=== PATIENT | female | born 1955 | race Two or more races ===

== ENCOUNTER 2016-05-03 13:02 | Emergency (ER) | payer BC ==
[2016-05-03 13:12] VITALS: BP 164/88; PULSE 76; TEMP 98.5; BMI 25.4
[2016-05-03] MEDS ORDERED: ALBUTEROL SO4 2.5/IPRATROPIUM 0.5 INH SOL 3 ML VIAL.NEB. NEB ONE (15:21)
[2016-05-03] MEDS ORDERED: ALBUTEROL SO4 0.083% IH SOL 2.5 MG/3 ML VIAL.NEB. NEB ONE ×2 (15:22→15:26)
--- NOTE | 2016-05-03 15:47 | PDOC ---
History of Present Illness - General Chief Complaint: Cold Symptoms Stated Complaint: FEVER, COLD, COUGH Time Seen by Provider: 05/03/16 15:11 History Source: Patient Exam Limitations: No Limitations - History of Present Illness Initial Comments: 05/03/16 15:44 CC cough and congesion x 1 week post vacation in [place] Timing/Duration: reports: getting worse Severity: reports: moderate Associated Symptoms: denies: facial pain Past History - Past Medical History Allergies/Adverse Reactions: Allergies Allergy/AdvReac Type Severity Reaction Status Date / Time No Known Allergies Allergy Verified 05/03/16 13:12 Home Medications: Ambulatory Orders Ibuprofen [Motrin] 600 mg PO TID #20 tablet 07/19/13 Meclizine HCl [Antivert -] 25 mg PO TID #20 tablet 07/19/13 No Home Medications 0 dose .ROUTE UTDICT 07/19/13 Oseltamivir Phosphate [Tamiflu] 75 mg PO BID #10 capsule 07/19/13 HTN: Yes Hypercholesterolemia: Yes - Psycho/Social/Smoking Cessation Hx Anxiety: No Suicidal Ideation: No Smoking History: Never smoked Have you smoked in the past 12 months: No Hx Alcohol Use: No Drug/Substance Use Hx: No Substance Use Type: None Review of Systems - Review of Systems Constitutional: Yes: Fever, Malaise HEENTM: Yes: Nose Congestion. No: Throat Pain Respiratory: Yes: Cough, Wheezing Cardiac (ROS): No: Symptoms Reported ABD/GI: No: Symptoms Reported *Physical Exam - Vital Signs Last Vital Signs Temp Pulse Resp BP Pulse Ox 98.5 F 76 20 164/88 96 05/03/16 13:08 05/03/16 13:08 05/03/16 13:08 05/03/16 13:08 05/03/16 13:08 - Physical Exam General Appearance: Yes: Appropriately Dressed. No: Apparent Distress HEENT: positive: TMs Normal, Nasal Congestion. negative: Pharynx Normal Neck: positive: Rigid Respiratory/Chest: positive: Lungs Clear, Wheezing Cardiovascular: positive: Regular Rhythm, Regular Rate. negative: Murmur ED Treatment Course - Medications Given in the ED: ED Medications Discontinued Medications Generic Name Dose Route Start Last Admin Trade Name Freq PRN Reason Stop Dose Admin Albuterol Sulfate 1 amp 05/03/16 15:22 05/03/16 15:25 Ventolin 0.083% Nebulizer Soln - NEB 05/03/16 15:23 1 amp ONCE ONE Administration Medical Decision Making - Medical Decision Making 05/03/16 15:45 feeling better post albuterol; will tx with albuterol and doxy *DC/Admit/Observation/Transfer Diagnosis at time of Disposition: Bronchitis - Discharge Dispostion Disposition: HOME Condition at time of disposition: Stable Admit: No - Patient Instructions Additional Instructions: see local MD next week
== END 2016-05-03 15:51 | disposition home or self-care (01) ==
LOC: JERFT 13:02
PROC: 3E0F7GC Introduction of Other Therapeutic Substance into Respiratory Tract, Via Natural or Artificial Opening (ICD-10-PCS; principal; 2016-05-03)
DX: J40 Bronchitis, not specified as acute or chronic (principal); I10 Essential (primary) hypertension
CPT/HCPCS: 99281-25

== ENCOUNTER 2017-01-10 15:54 | Emergency (ER) | payer BC ==
[2017-01-10 15:58] VITALS: BP 157/80; PULSE 82; TEMP 98.1; BMI 24.9
[2017-01-10] MEDS ORDERED: IBUPROFEN 600 MG TABLET (FP) PO ONE (17:03)
--- NOTE | 2017-01-10 17:03 | PDOC ---
History of Present Illness - General Chief Complaint: Toothache Stated Complaint: PAIN/ FACE, NECK Time Seen by Provider: 01/10/17 16:35 History Source: Patient Exam Limitations: No Limitations - History of Present Illness Initial Comments: 01/10/17 17:22 My chief complaint: Left-sided dental pain History of present illness: Patient is a 61-year-old female with a history of hypertension and hyperlipidemia here today complaining of left sided dental pain for the last 3 days. Patient reports that she's taken ibuprofen and acetaminophen as help relieve the pain. Patient denies any fever. Patient has multiple fillings on her molars has not seen a dentist for many years. Patient does not have dental insurance. Patient reports the pain currently is a 6 out of 10 aching in nature. Patient does not have any facial swelling. Timing/Duration: getting worse Severity: moderate (LEFT SIDED TOOTHACHE) Associated Symptoms: reports: denies symptoms Past History - Past Medical History Allergies/Adverse Reactions: Allergies Allergy/AdvReac Type Severity Reaction Status Date / Time No Known Allergies Allergy Verified 01/10/17 15:58 Home Medications: Ambulatory Orders Penicillin V Potassium [Pen Vee K -] 500 mg PO QID #28 tablet MDD 4 TABS HTN: Yes Hypercholesterolemia: Yes - Suicide/Smoking/Psychosocial Hx Smoking History: Never smoked Have you smoked in the past 12 months: No Hx Alcohol Use: No Drug/Substance Use Hx: No Substance Use Type: None Review of Systems - Review of Systems Able to Perform ROS?: Yes Constitutional: No: Symptoms Reported HEENTM: Yes: Dental Problems (LEFT UPPER AND LOWER TOOTH PAIN ) Respiratory: No: Symptoms reported Cardiac (ROS): No: Symptoms Reported ABD/GI: No: Symptoms Reported : No: Symptoms Reported Musculoskeletal: No: Symptoms Reported Integumentary: No: Symptoms Reported Neurological: No: Symptoms reported *Physical Exam - Vital Signs Last Vital Signs Temp Pulse Resp BP Pulse Ox 98.1 F 82 20 157/80 98 01/10/17 15:56 01/10/17 15:56 01/10/17 15:56 01/10/17 15:56 01/10/17 15:56 - Physical Exam General Appearance: Yes: Appropriately Dressed HEENT: positive: TMs Normal, Other (TOOTH # 18, 19 TENDERNESS TO TAPING, GUM TENDERNESS/EDEMA, LEFT LOWER MOLAR ). negative: Pharyngeal Erythema, Tonsillar Exudate, Tonsillar Erythema, Nasal Congestion, Rhinorrhea, Sinus Tenderness Neck: positive: Lymphadenopathy (L). negative: Lymphadenopathy (R) Respiratory/Chest: positive: Lungs Clear, Normal Breath Sounds. negative: Chest Tender, Respiratory Distress Cardiovascular: positive: Regular Rhythm, Regular Rate, S1, S2 Integumentary: positive: Normal Color Medical Decision Making - Medical Decision Making 01/10/17 17:36 Patient is a 61-year-old female with a history of hypertension and hyperlipidemia here today complaining of left sided dental pain for the last 3 days. Patient reports that she's taken ibuprofen and acetaminophen as help relieve the pain. Patient denies any fever. Patient has multiple fillings on her molars has not seen a dentist for many years. Patient does not have dental insurance. Patient reports the pain currently is a 6 out of 10 aching in nature. Patient does not have any facial swelling. DENTAL PAIN PLAN: IBUPROFEN 600 MG PO NOW PEN VK 500 MG QID FOR 7 DAYS FOLLOW UP WITH DENTIST TOMORROW AT [facility] *DC/Admit/Observation/Transfer Diagnosis at time of Disposition: Toothache - Discharge Dispostion Disposition: HOME Condition at time of disposition: Stable - Prescriptions Prescriptions: Penicillin V Potassium [Pen Vee K -] 500 mg PO QID #28 tablet MDD 4 TABS - Patient Instructions Additional Instructions: Follow-up with dentist at [facility] For Emergency Services/Urgent Care, please call . To schedule your first appointment, please call . GENERAL CLINIC HOURS Sunday - : 8:30 am - 8:00 pm (last appointment 6:00 pm) Sunday: 8:30 am - 4:00 pm (last appointment 2:00 pm) Avoid chewing on left side Take ibuprofen as needed as directed by poacher operator for pain Return to emergency room if any fever or swelling of your face or any other symptoms develop Patient voiced understanding of discharge instructions and all questions were answered thank you for choosing [facility] emergency room for your medical care today
[2017-01-10] MEDS ORDERED: IBUPROFEN 400 MG TABLET (FP) PO ONE (17:05)
== END 2017-01-10 17:25 | disposition home or self-care (01) ==
LOC: JERFT 15:54
DX: K08.89 Other specified disorders of teeth and supporting structures (principal); I10 Essential (primary) hypertension; E78.5 Hyperlipidemia, unspecified
CPT/HCPCS: 99281-25

== ENCOUNTER 2018-06-01 13:11 | Emergency (ER) | payer BC ==
[2018-06-01 13:28] VITALS: BMI 24.0
--- NOTE | 2018-06-01 13:41 | PDOC ---
History of Present Illness - General Chief Complaint: Shortness of Breath Stated Complaint: FLU SYMPTOMS Time Seen by Provider: 06/01/18 13:38 - History of Present Illness Initial Comments: 06/01/18 13:47 63 year old woman with a history of HTN and HLD who presents with 2 weeks of productive cough of yellow phlegm, congestion, sore throat, muscle weakness and loss of appetite. Patient's son was concerned that her symptoms were going on too long and wanted her to come to the ED. She has felt subjective fevers for the past few days and previously in the two weeks and has taken Theraflu, Ibuprofen, and Tylenol with moderate relief. 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 She admits to some chest pain only when coughing, denies abdominal pain, n/v/d/c, dysuria, hematuria. She has no other complaints at bedside. Past History - Past Medical History Allergies/Adverse Reactions: Allergies Allergy/AdvReac Type Severity Reaction Status Date / Time No Known Allergies Allergy Verified 01/10/17 15:58 Home Medications: Ambulatory Orders Albuterol Sulfate Inhaler - [Ventolin HFA Inhaler -] 1 - 2 inh PO Q4H #1 inhaler 06/01/18 Enalapril Maleate [Vasotec -] 10 mg PO DAILY 06/01/18 Guaifenesin AC [Robitussin AC -] 5 ml PO Q6H PRN #60 ml MDD 20 mL 06/01/18 Cancer: No Cardiac Disorders: No CVA: No COPD: No CHF: No Dementia: No HTN: Yes Hypercholesterolemia: Yes - Surgical History Cardiac Surgery: No Cholecystectomy: No Gastric Stapling: No GI Surgery: No - Suicide/Smoking/Psychosocial Hx Smoking History: Current every day smoker Have you smoked in the past 12 months: No Information on smoking cessation initiated: No Hx Alcohol Use: No Drug/Substance Use Hx: No Substance Use Type: None *Physical Exam - Vital Signs Last Vital Signs Temp Pulse Resp BP Pulse Ox 98.3 F 94 H 20 157/100 97 06/01/18 13:23 06/01/18 13:23 06/01/18 13:23 06/01/18 13:23 06/01/18 13:23 - Physical Exam Comments: 06/01/18 13:48 GENERAL: Awake, alert, and fully oriented, in no acute distress HEAD: No signs of trauma, normocephalic, atraumatic EYES: PERRLA, EOMI, sclera anicteric, conjunctiva clear ENT: Auricles normal inspection, hearing grossly normal, nares patent, oropharynx clear without exudates. Moist mucosa NECK: Normal ROM, supple, no lymphadenopathy, JVD, or masses LUNGS: No distress, speaks full sentences, clear to auscultation bilaterally HEART: Regular rate and rhythm, normal S1 and S2, no murmurs, rubs or gallops, peripheral pulses normal and equal bilaterally. ABDOMEN: Soft, nontender, normoactive bowel sounds. No guarding, no rebound. No masses EXTREMITIES : Normal inspection, Normal range of motion, no edema. No clubbing or cyanosis. NEUROLOGICAL: Cranial nerves II through XII grossly intact. Normal speech, normal gait, no focal sensorimotor deficits SKIN: Warm, Dry, normal turgor, no rashes or lesions noted Moderate Sedation - Procedure Monitoring Vital Signs: Procedure Monitoring Vital Signs Temperature 98.3 F 06/01/18 13:23 Pulse Rate 94 H 06/01/18 13:23 Respiratory Rate 20 06/01/18 13:23 Blood Pressure 157/100 06/01/18 13:23 O2 Sat by Pulse Oximetry (%) 97 06/01/18 13:23 ED Treatment Course - LABORATORY CBC & Chemistry Diagram: 06/01/18 14:20 06/01/18 14:24 Medical Decision Making - Medical Decision Making 06/01/18 14:12 63 year old woman with a history of HTN and HLD who presents with 2 weeks of productive cough of yellow phlegm, congestion, sore throat, muscle weakness and loss of appetite. Patient's son was concerned that her symptoms were going on too long and wanted her to come to the ED. She has felt subjective fevers for the past few days and previously in the two weeks and has taken Theraflu, Ibuprofen, and Tylenol with moderate relief. 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 She admits to some chest pain only when coughing, ED Course: Consider pneumonia vs viral uri vs bronchitis vs influenza Influenza test 06/01/18 14:15 *DC/Admit/Observation/Transfer Diagnosis at time of Disposition: Viral syndrome - Discharge Dispostion Disposition: HOME Condition at time of disposition: Stable Decision to Admit order: No - Referrals - Patient Instructions Printed Discharge Instructions: DI for Viral Syndrome Additional Instructions: You were seen in the ED for complaints of cough and congestion. In the ED you were evaluated with labwork and imaging. Your results were unremarkable. There does not appear to be an acute need for immediate hospitalization. You are advised to follow up with your Primary Care Physician within 1 week. You were given a prescription for Robitussin w/ codeine and albuterol inhaler. Return to the ED immediately if you experience worsening shortness of breath, chest pain, fevers, headaches, nausea or loss of consciousness. Usted fue visto en el servicio de urgencias por quejas de tos y congestin. En el servicio de urgencias se le evalu con trabajo de laboratorio e imgenes. Shila resultados no fueron notables. No parece sharyn mariia necesidad aguda de hospitalizacin inmediata. Se recomienda realizar un seguimiento con matamoros mdico de atencin primaria dentro de 1 semana. Recibi mariia receta para Robitussin con inhalador de codena y albuterol. Regrese a la chriss de urgencias inmediatamente si experimenta dificultad para respirar, dolor en el pecho, fiebre, dolor de brgiitte, nusea o prdida de conciencia. - Post Discharge Activity
--- NOTE | 2018-06-01 13:56 | PDOC ---
Attending Attestation - HPI HPI: 06/01/18 14:30 The patient is a 63 year old female with a PMH of HTN and HLD who presents to the ER with a cough for the past 2 weeks. Patient reports the cough is productive of yellow phelgm and is associated with a sore throat, congestion, and decreased appetite. Patient has tried Theraflu, Ibuprofen and Tylenol at home with no improvement of his symptoms. She admits to mild chest pain when coughing, but denies any abdominal pain, n/v/ d/c, or urinary symptoms. <Lizabeth Kendall - Last Filed: 06/01/18 14:30> - Resident Resident Name: Karina Bates - ED Attending Attestation I have performed the following: I have examined & evaluated the patient, The case was reviewed & discussed with the resident, I agree w/resident's findings & plan, Exceptions are as noted - Physicial Exam PE: GENERAL: Awake, alert, and fully oriented, in no acute distress HEAD: No signs of trauma EYES: PERRLA, EOMI, sclera anicteric, conjunctiva clear ENT: Auricles normal inspection, hearing grossly normal, nares patent, oropharynx clear without exudates. Moist mucosa NECK: Normal ROM, supple, no lymphadenopathy, JVD, or masses LUNGS: Good air entry B/L, scattered exp wheezes. HEART: Regular rate and rhythm, normal S1 and S2, no murmurs, rubs or gallops ABDOMEN: Soft, nontender, normoactive bowel sounds. No guarding, no rebound. No masses EXTREMITIES: Normal range of motion, no edema. No clubbing or cyanosis. No cords, erythema, or tenderness NEUROLOGICAL: Cranial nerves II through XII grossly intact. Normal speech, normal gait. Motor and sensation intact SKIN: Warm, Dry, normal turgor, no rashes or lesions noted. <Brenda Mullins - Last Filed: 06/01/18 15:00>
[2018-06-01 14:31] LABS: BASO % 1.1 % (0-2.0); EOS % 0.7 % (0-4.5); HEMATOCRIT 38.2 % (32.4-45.2); HEMOGLOBIN 13.1 GM/dL (10.7-15.3); LYMPH % 24.3 % (8-40); MCH 30.4 pg (25.7-33.7); MCHC 34.3 g/dl (32.0-36.0); MEAN CELL VOLUME 88.6 fl (80-96); MEAN PLT VOLUME 7.5 fl (7.5-11.1); MONO % 14.7 % (3.8-10.2); NEUT % 59.2 % (42.8-82.8); PLATELET COUNT 227 K/MM3 (134-434); RBC 4.31 M/mm3 (3.60-5.2); RDW 14.2 % (11.6-15.6); WHITE BLOOD COUNT 4.8 K/mm3 (4.0-10.0)
[2018-06-01 14:59] LABS: ALBUMIN 3.8 g/dl (3.4-5.0); ALK PHOS 91 U/L (45-117); ANION GAP 6 MMOL/L (8-16); BILIRUBIN,TOTAL 0.2 mg/dL (0.2-1); BLOOD UREA NITROGEN 14 mg/dL (7-18); CALCIUM 8.6 mg/dL (8.5-10.1); CHLORIDE 104 mmol/L (98-107); CO2 28 mmol/L (21-32); CREATININE 0.8 mg/dL (0.55-1.3); GLUCOSE,RANDOM 168 mg/dL (74-106); POTASSIUM 3.9 mmol/L (3.5-5.1); SGOT/AST 23 U/L (15-37); SGPT/ALT 24 U/L (13-61); SODIUM 138 mmol/L (136-145); TOT PROT 7.6 g/dl (6.4-8.2)
[2018-06-01] MEDS ORDERED: ALBUTEROL SO4 2.5/IPRATROPIUM 0.5 INH SOL 3 ML VIAL.NEB. NEB ONE ×2 (15:00→15:33)
[2018-06-01] MEDS ORDERED: guaiFENesin/CODEINE 10 ML UNIT-DOSE CUPS PO ONE (15:00)
[2018-06-01] MEDS ORDERED: ACETAMINOPHEN 325 MG TABLET (FP) ONE (15:33)
[2018-06-01] MEDS ORDERED: guaiFENesin/CODEINE 5 ML UNIT-DOSE CUPS PO ONE (15:33)
[2018-06-01] MEDS ORDERED: ACETAMINOPHEN 325 MG TABLET (FP) PO ONE (15:39)
[2018-06-01 16:56] VITALS: BP 145/91; PULSE 77; TEMP 98.9
--- NOTE | 2018-06-02 09:28 | EKG ---
Test Reason : Blood Pressure : / mmHG Vent. Rate : 083 BPM Atrial Rate : 083 BPM P-R Int : 148 ms QRS Dur : 064 ms QT Int : 362 ms P-R-T Axes : 075 -02 027 degrees QTc Int : 425 ms NORMAL SINUS RHYTHM POSSIBLE INFERIOR INFARCT , AGE UNDETERMINED ABNORMAL ECG NO PREVIOUS ECGS AVAILABLE Confirmed by Sedrick Hugo MD ([id number]) on 06/02/2018 9:27:48 AM Referred By: Confirmed By:Sedrick Huog MD
== END 2018-06-01 17:05 | disposition home or self-care (01) ==
LOC: JER 13:11
PROC: 3E0F7GC Introduction of Other Therapeutic Substance into Respiratory Tract, Via Natural or Artificial Opening (ICD-10-PCS; principal; 2018-06-01)
DX: B34.9 Viral infection, unspecified (principal); I10 Essential (primary) hypertension; E78.5 Hyperlipidemia, unspecified
CPT/HCPCS: 36415; 71046-TC-FY; 80053; 85025; 87804; 93005; 93010; 99283-25

== ENCOUNTER 2018-12-29 15:00 | Emergency (ER) | payer BC, OTHER ==
[2018-12-29 15:30] VITALS: BMI 27.4
--- NOTE | 2018-12-29 16:51 | PDOC ---
History of Present Illness - General Chief Complaint: Pain, Acute Stated Complaint: LT SIDE ABD RADIATE DOWN THE LEG Time Seen by Provider: 12/29/18 15:43 History Source: Patient, Family - History of Present Illness Timing/Duration: reports: getting worse Abdominal Pain Onset Location: reports: flank Past History - Past Medical History Allergies/Adverse Reactions: Allergies Allergy/AdvReac Type Severity Reaction Status Date / Time No Known Allergies Allergy Verified 12/29/18 15:21 Home Medications: Ambulatory Orders Albuterol Sulfate Inhaler - [Ventolin HFA Inhaler -] 1 - 2 inh PO Q4H #1 inhaler 06/01/18 Enalapril Maleate [Vasotec -] 10 mg PO DAILY 06/01/18 Guaifenesin AC [Robitussin AC -] 5 ml PO Q6H PRN #60 ml MDD 20 mL 06/01/18 Cancer: No Cardiac Disorders: No CVA: No COPD: No CHF: No Dementia: No HTN: Yes Hypercholesterolemia: Yes - Surgical History Cardiac Surgery: No Cholecystectomy: No Gastric Stapling: No GI Surgery: No - Suicide/Smoking/Psychosocial Hx Smoking History: Never smoked Have you smoked in the past 12 months: No Hx Alcohol Use: No Drug/Substance Use Hx: No Substance Use Type: None Review of Systems - Review of Systems Constitutional: No: Chills, Fever ABD/GI: No: Blood Streaked Bowels, Constipated, Diarrhea, Nausea, Rectal Bleeding, Vomiting : Yes: Flank Pain. No: Dysuria, Hematuria *Physical Exam - Vital Signs Last Vital Signs Temp Pulse Resp BP Pulse Ox 98 F 79 18 111/78 99 12/29/18 15:15 12/29/18 15:15 12/29/18 15:15 12/29/18 15:15 12/29/18 15:15 - Physical Exam General Appearance: Yes: Appropriately Dressed, Moderate Distress HEENT: positive: Normal Voice Neck: positive: Supple Respiratory/Chest: negative: Respiratory Distress Gastrointestinal/Abdominal: positive: Normal Bowel Sounds, Tender (poorly localized ttp to L flank, +ttp to L lower back, no CVAT), Soft. negative: Distended, Guarding, Rebound Musculoskeletal: negative: CVA Tenderness Integumentary: positive: Dry, Warm Neurologic: positive: Fully Oriented, Alert, Normal Mood/Affect ED Treatment Course - LABORATORY CBC & Chemistry Diagram: 12/29/18 18:15 12/29/18 18:15 Medical Decision Making - Medical Decision Making 12/29/18 16:46 63 yo F, HTN, p/w L flank pain x 3 days, radiating to abd and LLE, constant, worse w/ movement and w/ palpation. Taking motrin w/ no relief. Denies any trauma. No h/o similar pain. Denies dysuria, hematuria, n/v/f/c see exam Renal colic vs uti/pyelo vs diverticulitis, possibly MSK -pain control -labs -CT -dispo pending *DC/Admit/Observation/Transfer Diagnosis at time of Disposition: Flank pain - Discharge Dispostion Disposition: HOME Condition at time of disposition: Stable - Referrals Referrals: Gennaro Alex MD [Primary Care Provider] - - Patient Instructions Printed Discharge Instructions: DI for Flank Pain Additional Instructions: Your Discharge Instructions: You must call primary care physician within 24 hours to arrange follow-up. Return to the Emergency Department with any new, persistent or worsening symptoms, for fever, chills, SOB, dizziness or any other concerning changes that may occur. - Post Discharge Activity
[2018-12-29] MEDS ORDERED: KETOROLAC TROMETHAMINE 30 MG/1 ML VIAL IVPUSH ONE (16:53)
[2018-12-29] MEDS ORDERED: KETOROLAC TROMETHAMINE 30 MG/1 ML VIAL ONE (17:40)
[2018-12-29 18:44] LABS: BASO % 0.8 % (0-2.0); EOS % 1.5 % (0-4.5); HEMATOCRIT 38.4 % (32.4-45.2); HEMOGLOBIN 12.6 GM/dL (10.7-15.3); LYMPH % 36.6 % (8-40); MCH 29.5 pg (25.7-33.7); MCHC 32.9 g/dl (32.0-36.0); MEAN CELL VOLUME 89.6 fl (80-96); MEAN PLT VOLUME 8.2 fl (7.5-11.1); MONO % 6.7 % (3.8-10.2); NEUT % 54.4 % (42.8-82.8); PLATELET COUNT 290 K/MM3 (134-434); RBC 4.28 M/mm3 (3.60-5.2); RDW 14.8 % (11.6-15.6)
[2018-12-29 19:10] LABS: ALBUMIN 3.9 g/dl (3.4-5.0); BILIRUBIN,TOTAL 0.2 mg/dL (0.2-1); CALCIUM 9.7 mg/dL (8.5-10.1); CREATININE 0.8 mg/dL (0.55-1.3); TOT PROT 7.7 g/dl (6.4-8.2)
[2018-12-29 19:11] LABS: POTASSIUM 4.3 mmol/L (3.5-5.1)
[2018-12-29 20:41] VITALS: BP 144/82
--- NOTE | 2018-12-29 22:13 | PDOC ---
*Physical Exam - Vital Signs Last Vital Signs Temp Pulse Resp BP Pulse Ox 98 F 56 L 16 144/82 98 12/29/18 15:15 12/29/18 20:35 12/29/18 20:35 12/29/18 20:35 12/29/18 20:35 - Physical Exam Comments: 12/29/18 22:13 Patient endorsed to me to follow CT scan and disposition. ED Treatment Course - LABORATORY CBC & Chemistry Diagram: 12/29/18 18:15 12/29/18 18:15 - ADDITIONAL ORDERS Additional order review: Laboratory Results 12/29/18 18:15 Sodium 143 Potassium 4.3 Chloride 102 Carbon Dioxide 31 Anion Gap 10 BUN 17.0 Creatinine 0.8 Est GFR (CKD-EPI)AfAm 91.58 Est GFR (CKD-EPI)NonAf 79.01 Random Glucose 79 Calcium 9.7 Total Bilirubin 0.2 AST 21 ALT 24 Alkaline Phosphatase 83 Total Protein 7.7 Albumin 3.9 Lipase 175 12/29/18 18:15 RBC 4.28 MCV 89.6 MCHC 32.9 RDW 14.8 MPV 8.2 Neutrophils % 54.4 Lymphocytes % 36.6 D Monocytes % 6.7 Eosinophils % 1.5 D Basophils % 0.8 - Medications Given in the ED: ED Medications Discontinued Medications Generic Name Dose Route Start Last Admin Trade Name Yuval PRN Reason Stop Dose Admin Ketorolac Tromethamine 30 mg 12/29/18 16:53 12/29/18 18:15 Toradol Injection - IVPUSH 12/29/18 16:54 30 mg ONCE ONE Administration Medical Decision Making - Medical Decision Making Patient endorsed to me to review CT scan and disposition. 12/29/18 23:07 Patient Full Name: SHAUNNA ASHER Patient Accession No: [id number] Patient : [id number] Reason for Exam: L LOWER ABD PAIN Referring Physician: WILNER ANDRADE Patient Name: LB MAZA THIS IS A PRELIMINARY REPORT FROM [facility] DATE OF SERVICE: 2018-12-29 19:44:10 IMAGES: [id number] EXAM: ABDOMEN \T\ PELVIS CT WITH CONTR HISTORY: Left lower abdominal pain COMPARISON: None. FINDINGS: Fluid filled loops of small bowel are noted in the pelvis. They are only slightly dilated and there is no appreciable transition zone. Therefore, this may represent ileus/enteritis. Not definitely obstruction at this time. No bowel inflammation. Negative for diverticulitis or colitis. Appendicolith noted in a noninflamed nondilated appendix. Normal liver. Contracted gallbladder. Normal spleen. Normal pancreas. Normal adrenal glands. 7.5 cm left renal cyst. Bilateral nonobstructing renal stones. No acute renal abnormality or urinary tract obstruction. No free intraperitoneal air or free fluid. Osseous structures are intact. However if there are signs or symptoms of bowel obstruction then close observation/follow-up is recommended. One or more of the following dose reduction techniques were used: automated exposure control, adjustment of the mA and/or kV according to patient size, use of iterative reconstructive technique. THIS DOCUMENT HAS BEEN ELECTRONICALLY SIGNED Narayan Andrade MD 12/29/2018 22:53 EST M.D. Please call [facility] [phone] ([phone]) with questions. INTERPRETING RADIOLOGIST: Narayan Andrade MD Electronically Signed: Dec 29, 2018 10:54PM EDT. I discussed the physical exam findings, ancillary test results and final diagnoses with the patient. I answered all of the patient's questions. The patient was satisfied with the care received and felt comfortable with the discharge plan and treatment plan. The Patient agrees to follow up with the primary care physician within 24-[address] Copy [address] the [address] scan was given to the patient to follow-up of the renal cyst. *DC/Admit/Observation/Transfer Diagnosis at time of Disposition: Flank pain - Discharge Dispostion Disposition: HOME Condition at time of disposition: Stable - Referrals Referrals: Gennaro Alex MD [Primary Care Provider] - - Patient Instructions Printed Discharge Instructions: DI for Flank Pain Additional Instructions: Your Discharge Instructions: You must call primary care physician within 24 hours to arrange follow-up. Return to the Emergency Department with any new, persistent or worsening symptoms, for fever, chills, SOB, dizziness or any other concerning changes that may occur. - Post Discharge Activity
[2018-12-29 23:45] VITALS: PULSE 60; TEMP 97.8
[2018-12-30 00:40] LABS: URINE APPEARANCE CLEAR; URINE BILIRUBIN NEGATIVE (NEGATIVE); URINE COLOR YELLOW; URINE GLUCOSE (UA) NEGATIVE (NEGATIVE); URINE KETONE NEGATIVE (NEGATIVE)
[2018-12-30 00:41] LABS: PH,URINE 7.5 (5.0-8.0); URINE NITRITE NEGATIVE (NEGATIVE); URINE PROTEIN NEGATIVE (NEGATIVE); URINE UROBILINOGEN 0.2 mg/dL (0.2-1.0)
[2018-12-30 00:42] LABS: URINE LEUK ESTERASE NEGATIVE (NEGATIVE)
== END 2018-12-30 00:04 | disposition home or self-care (01) ==
LOC: JER 15:00
PROC: 3E0333Z Introduction of Anti-inflammatory into Peripheral Vein, Percutaneous Approach (ICD-10-PCS; principal; 2018-12-29)
DX: R10.9 Unspecified abdominal pain (principal); R10.32 Left lower quadrant pain
CPT/HCPCS: 36415; 74177-TC; 80053; 81003; 83690; 85025; 87077; 87086; 99283-25

== ENCOUNTER 2020-08-06 22:07 | Emergency (ER) | payer OTHER ==
[2020-08-06 22:18] VITALS: BMI 32.2
[2020-08-06 23:31] LABS: BASO % 0.7 % (0-2.0); EOS % 1.5 % (0-4.5); HEMATOCRIT 37.6 % (32.4-45.2); HEMOGLOBIN 12.6 GM/dL (10.7-15.3); LYMPH % 30.2 % (8-40); MCH 29.3 pg (25.7-33.7); MCHC 33.6 g/dl (32.0-36.0); MEAN CELL VOLUME 87.3 fl (80-96); MEAN PLT VOLUME 8.7 fl (7.5-11.1); MONO % 6.9 % (3.8-10.2); NEUT % 60.7 % (42.8-82.8); PLATELET COUNT 282 K/MM3 (134-434); RBC 4.31 M/mm3 (3.60-5.2); RDW 14.3 % (11.6-15.6); WHITE BLOOD COUNT 6.8 K/mm3 (4.0-10.0)
[2020-08-06 23:52] LABS: CHLORIDE 99 mmol/L (98-107); SODIUM 138 mmol/L (136-145)
[2020-08-06 23:55] LABS: ALBUMIN 3.8 g/dl (3.4-5.0); ANION GAP 8 MMOL/L (8-16); BLOOD UREA NITROGEN 15.7 mg/dL (7-18); CO2 31 mmol/L (21-32); GLUCOSE,RANDOM 291 mg/dL (74-106)
[2020-08-06 23:58] LABS: CREATININE 0.8 mg/dL (0.55-1.3); SGOT/AST 18 U/L (15-37); SGPT/ALT 24 U/L (13-61)
[2020-08-06] MEDS ORDERED: POTASSIUM CHLORIDE TABS 20 MEQ TABLET.ER (FP) PO ONE (23:58)
[2020-08-06 23:59] LABS: BILIRUBIN,TOTAL 0.3 mg/dL (0.2-1); TOT PROT 7.6 g/dl (6.4-8.2)
[2020-08-07 00:01] LABS: ALK PHOS 136 U/L (45-117)
[2020-08-07] MEDS ORDERED: POTASSIUM CHLORIDE TABS 20 MEQ TABLET.ER (FP) PO ONE (00:03)
[2020-08-07] MEDS ORDERED: INSULIN REGULAR HUMAN 100 UNITS/ML *VIAL SQ ONE (00:29)
[2020-08-07 00:45] VITALS: BP 160/104; PULSE 76; TEMP 97.8
[2020-08-07] MEDS ORDERED: LACTATED RINGERS SOLUTION 1000 ML INFUS.BAG IV ONE (01:01)
[2020-08-07 01:20] LABS: EPI CELLS 11 /uL (0-25.1); HYALINE CASTS 0 /uL (0-3.1); URINE APPEARANCE CLEAR; URINE BACTERIA 25 /uL (0-1359); URINE BILIRUBIN NEGATIVE (NEGATIVE); URINE COLOR YELLOW; URINE GLUCOSE (UA) TRACE (NEGATIVE); URINE KETONE NEGATIVE (NEGATIVE); URINE LEUK ESTERASE 1+ (NEGATIVE); URINE NITRITE NEGATIVE (NEGATIVE); URINE PROTEIN NEGATIVE (NEGATIVE); URINE RBC 14 /uL (0-23.9); URINE UROBILINOGEN 0.2 mg/dL (0.2-1.0); URINE WBC 16 /uL (0-25.8)
== END 2020-08-07 01:54 | disposition home or self-care (01) ==
LOC: JER 22:07
DX: R73.9 Hyperglycemia, unspecified (principal); I10 Essential (primary) hypertension; R41.82 Altered mental status, unspecified
CPT/HCPCS: 36415; 70450-TC; 71046-TC-FY; 80053; 81003; 82962; 83735; 84484; 85025; 93005; 93010; 99285-25

== ENCOUNTER 2021-11-16 10:16 | Day surgery (SDC) | payer OTHER ==
[2021-11-11 11:25] VITALS: BMI 26.5
[2021-11-16 12:12] VITALS: RESP 20; TEMP 97.6
[2021-11-16 12:41] VITALS: BP 130/87; PULSE 75
== END 2021-11-16 12:35 | disposition home or self-care (01) ==
LOC: FASU-ENDO 10:16
PROVIDERS: ATTEND Internal Medicine Gastroenterology
PROC: 0DB68ZX Excision of Stomach, Via Natural or Artificial Opening Endoscopic, Diagnostic (ICD-10-PCS; 2021-11-16)
PROC: 0DB48ZX Excision of Esophagogastric Junction, Via Natural or Artificial Opening Endoscopic, Diagnostic (ICD-10-PCS; 2021-11-16)
PROC: 0DB98ZX Excision of Duodenum, Via Natural or Artificial Opening Endoscopic, Diagnostic (ICD-10-PCS; principal; 2021-11-16 11:35)
DX: K21.00 Gastro-esophageal reflux disease with esophagitis, without bleeding (principal); K31.89 Other diseases of stomach and duodenum; K44.9 Diaphragmatic hernia without obstruction or gangrene; R10.13 Epigastric pain
CPT/HCPCS: 88305-TC; 88342-TC

== ENCOUNTER 2022-11-28 19:13 | Emergency (ER) | payer OTHER ==
[2022-11-28 19:24] VITALS: BMI 27.8
[2022-11-28] MEDS ORDERED: ACETAMINOPHEN 1000 MG/100 ML BAG IVPB ONE (19:51)
[2022-11-28] MEDS ORDERED: ACETAMINOPHEN INJECTION 100 ML IVPB ONE (20:16)
[2022-11-28 20:58] LABS: BASO % 0.7 % (0-2.0); HEMATOCRIT 38.7 % (32.4-45.2); HEMOGLOBIN 12.8 GM/dL (10.7-15.3); LYMPH % 29.5 % (8-40); MCH 29.3 pg (25.7-33.7); MEAN CELL VOLUME 88.8 fl (80-96); MEAN PLT VOLUME 7.5 fl (7.5-11.1); MONO % 14.7 % (3.8-10.2); NEUT % 55.1 % (42.8-82.8); PLATELET COUNT 233 10^3/uL (134-434); RBC 4.36 M/mm3 (3.60-5.2); WHITE BLOOD COUNT 6.2 K/mm3 (4.0-10.0)
[2022-11-28 21:22] LABS: POTASSIUM 4.4 mmol/L (3.5-5.1)
[2022-11-28 21:27] LABS: CALCIUM 9.4 mg/dL (8.5-10.1)
[2022-11-28 21:28] LABS: BLOOD UREA NITROGEN 11.2 mg/dL (7-18)
[2022-11-28 21:32] LABS: BILIRUBIN,TOTAL 0.3 mg/dL (0.2-1); TOT PROT 7.7 g/dl (6.4-8.2)
[2022-11-28 21:43] VITALS: BP 125/79; PULSE 81; RESP 17; TEMP 98.5
== END 2022-11-28 22:25 | disposition home or self-care (01) ==
LOC: JER 19:13
PROC: 3E033NZ Introduction of Analgesics, Hypnotics, Sedatives into Peripheral Vein, Percutaneous Approach (ICD-10-PCS; principal; 2022-11-28)
DX: R50.9 Fever, unspecified (principal); R05.9 Cough, unspecified; R53.81 Other malaise; R09.3 Abnormal sputum; U07.1 COVID-19
CPT/HCPCS: 0241U-QW; 36415; 71046-TC-FY; 80053; 85025; 93005; 93010; 99285-25

== ENCOUNTER 2024-10-27 06:29 | Day surgery (SDC) | payer OTHER ==
[2024-10-22 10:00] VITALS: BMI 27.8
[2024-10-27 08:14] VITALS: RESP 20
[2024-10-27] MEDS ORDERED: MIDAZOLAM HCL 2 MG/2 ML SINGLE DOSE VIAL ONE (09:49)
[2024-10-27 11:42] VITALS: BP 123/75; PULSE 63; TEMP 97.5
== END 2024-10-27 12:35 | disposition home or self-care (01) ==
LOC: JASU-SURG 06:29
PROVIDERS: ATTEND Urology
PROC: 0TF3XZZ Fragmentation in Right Kidney Pelvis, External Approach (ICD-10-PCS; principal; 2024-10-27 09:54)
DX: N20.0 Calculus of kidney (principal)
CPT/HCPCS: 82962